=== PATIENT | female | born 1975 | race Asian ===

== ENCOUNTER 2019-03-06 16:55 | Emergency (ER) | payer SELFPAY ==
[~2019-03-06] VITALS: Ht 167.6 cm; Wt 78.4 kg
[2019-03-06 16:59] VITALS: Ht 167.6 cm; Wt 78.4 kg
--- NOTE | 2019-03-06 20:13 | ERD ---
ER Documentation Chief Complaint Chief Complaint Complains of a severe headache x 3 days HPI This is an otherwise healthy 44-year-old female who presents with headache neck pain and dental pain. It first began 2 days ago. She first had pain in her right frontal 2 and then the pain moved to her shoulders and neck and and up to her heads around her frontal orbits. She had no nausea vomiting or diarrhea. She is taking ibuprofen which did help. No trauma. No fever. No nausea vomiting. No changes to her vision or photosensitivity. She states she woke up today and had paresthesias on the left side of her face, which has now resolved. At that time she also stated she felt twitching in her left eye. She has no slurred speech. No upper or lower extremity weakness. Does not take any blood thinners. ROS All systems reviewed and are negative except as per history of present illness. Medications Home Meds Active Scripts Ibuprofen* (Ibuprofen*) 800 Mg Tablet, 800 MG PO Q6H PRN for PAIN, #30 TAB Prov:CRISTINE MAR PA-C 03/06/19 valAcyclovir Hcl* (valACYclovir Hcl*) 500 Mg Tablet, 1000 MG PO BID for 7 Days, TAB Prov:CRISTINE MAR PA-C 03/06/19 Allergies Allergies: Coded Allergies: No Known Allergy (Unverified , 03/06/19) PMhx/Soc History of Surgery: Yes (, cyst on sternal notch) Anesthesia Reaction: No Hx Neurological Disorder: No Hx Respiratory Disorders: No Hx Cardiac Disorders: No Hx Psychiatric Problems: No Hx Miscellaneous Medical Probl: No Hx Alcohol Use: No Hx Substance Use: No Hx Tobacco Use: No Smoking Status: Never smoker FmHx Family History: No diabetes Physical Exam Vitals Vital Signs Date Temp Pulse Resp B/P (MAP) Pulse Ox O2 O2 Flow FiO2 Time Delivery Rate 03/06/19 98.7 74 20 120/57 98 16:59 (78) Physical Exam INITIAL VITAL SIGNS: Reviewed by me GENERAL: Awake, alert and oriented x 4, well appearing, nontoxic, speaking in full sentences. No acute distress HEAD: Atraumatic NECK: Supple. No masses. Full range of motion. No meningismus. No midline tenderness. EYES: EOMI. PERRL. THROAT: No tonilar erythema or edema. No exudates. Uvula midline. No kissing tonsils. RESPIRATORY: Clear to auscultation bilaterally. Symmetric chest wall rise. No wheezing or rales. No accessory muscle use. CV: Regular rate and rhythm. No murmurs, rubs, or gallops. Neuro: M/S: Alert and oriented Face: EOMI, face and pharynx with normal sensation and function Motor: Normal strength throughout Sensation: Normal sensation throughout Speech: Normal Cerebel: Normal coordination Normal gait Normal finger to nose Procedures/MDM The differential diagnosis includes but is not limited to subdural hematoma, epidural hematoma, intracerebral hemorrhage, occult trauma, CVA, meningitis, encephalitis, hypertension, tension, migraine, cluster, cervical spine disease, and others. Patient does have headache and dental pain that began 2 days ago. This morning she had paresthesias in the left side of her face that is now resolved. At this time her face is symmetrical, there is no facial droop. No upper or lower extremity weakness. Low suspicion for ischemic stroke. Possible early Groves's palsy. CT scan of the brain ordered. Patient declined pain medication at this time. I gave her a prescription for ibuprofen as well as valacyclovir just in case this is an early Groves's palsy. She was also given outpatient dental follow-up.CT scan is negative. She was given copy of the results she can follow-up with primary care. Patient counseled regarding my diagnostic impression and care plan. Prior to discharge all questions answered. Pt agrees with treatment plan and understands strict return precautions. Pt is instructed to follow up with primary care provider within 24-48 hours. Precautionary instructions provided including instructions to return to the ER if not improving or for any worsening or changing symptoms or concerns. Departure Diagnosis: Primary Impression: Headache Additional Impression: Pain, dental Condition: Stable CRISTINE MAR PA-C March 06, 2019 20:13
[2019-03-06] MEDS ORDERED: IBUP-1544 PO (21:17)
[2019-03-06] MEDS ORDERED: VALA500T PO (21:17)
[2019-03-06 21:29] VITALS: BP 126/70; PULSE 71; RESP 18
== END 2019-03-06 21:30 | disposition home or self-care (01) ==
LOC: FTE 16:55
DX: K08.89 Other specified disorders of teeth and supporting structures (principal)
CPT/HCPCS: 70450